=== PATIENT | female | born 1990 | race Caucasian/White ===

== ENCOUNTER 2016-09-22 12:52 | Emergency (ER) | payer MEDICAID ==
[~2016-09-22] VITALS: Ht 162.6 cm; Wt 72.6 kg
[~2016-09-22 12:52] MED LIST: AMOXICOT500 M1 PO; CIPRO 500MG TA500 MG PO; DIFLUCAN150 MG PO; HYDROCORTI30 GM/TUB1 TP; HYDROCORTISONE1% EX; MEDROL 4MG. DOSE4 MG PO; METFORMIN500 MG PO; NOMEDS *; NORCO 325 MG-51 TAB PO; PERCOCET 5/3251 EACH PO; PREDNISONE 10MG10 MG PO; PRENATAL PLUS1 TA1 PO; PYRIDIUM 200MG200 MG PO; Pepcid20 MG PO; SEPTRA DS 800 M1 TAB PO
[2016-09-22] MEDS ORDERED: BACTRIM DS 8001 TA1 PO (13:30)
--- NOTE | 2016-09-22 13:31 | [facility]gent Treatment Center Report ---
History of Present Issue Date/Time Seen by Provider 09/22/16 1317 Visit Reason Pt arrived:Walked Presenting Problem:PT HAS TWO DENYS SMALL AREAS ON HIS LEFT SIDE Location if Accident: Onset of symptoms date/time:/ or onset unknown for:MEDICAL HX UNKNOWN Have you (or family members/close friends) recently traveled outside the [place]? N If Yes, where/when: Have you had exposure to infectious disease within the past month? TB? Other? Specify: c/o two areas of redness to left hip first noticed yesterday. "like a red dot at first". Since that time, surrounding erythema, warmth, tenderness. "one came to a head and yellow drainage came out". No fever, aches, chills, nausea. Hasn't taken or tried anything for symptoms. Worried about MRSA. Source patient Exam Limitations no limitations ALLERGIES Coded Allergies: No Known Allergies (09/22/16) History Medical History General CAD? No Angina: No TN: No Hypertension? No Hyperlipidemia? No CHF? No COPD? No Asthma? No Anemia? No Hernia? No Thyroid Problems? No Hypothyroidism? No CVA? No Seizures? No Diabetes? No UTI? No Stones? No GB Disease: No Nephritic Syndrome? No Asplenia? No Hepatitis? No Sickle Cell Disease? No Arthritis? No Cataracts? No Glaucoma? No MRSA? No TB? No Cancer? No Immunization HX DT/Tetanus 1-4 YRS Flu Refused Pneumonia Never Had Surgical Hx Previous Surgery?N Social History Smoking Hx Smoker: Current Every Day Smoker Tobacco: Yes Type Cigarettes Alcohol Alcohol: No Review of Systems All Other Systems Reviewed and Negative Constitutional see HPI Gastrointestinal see HPI Musculoskeletal see HPI Skin see HPI Psychiatric/Neurological denies numbness, denies tingling Physical Exam Vital Signs Vital Signs Date Time Temp Pulse Resp B/P Pulse O2 O2 Flow FiO2 Ox Delivery Rate 09/22 1333 98.3 88 16 152/100 98 09/22 1301 98.3 88 16 152/100 98 General Appearance normal appearance, no apparent distress Respiratory Status No: respiratory distress. Cardiovascular regular rate/rhythm, no murmur Gastrointestinal non tender, soft Neurologic alert Skin warm/dry, 4.5cm x 2cm and 4.5cm x 1.5cm areas of warm, tender, soft, not fluctuate redness on left hip side by side. One w/ approx 1mm opening without current drainage. Other w/ approx 1mm center chow but skin intact. Medical Decision Making LABS/Meds/Orders Pt receiving controlled substance in ED? No Departure Departure Time of Disposition 1325 Disposition DC Home or Self Care(routine) Clinical Impression Primary Impression: Cellulitis Qualifiers: Site of cellulitis: trunk Site of cellulitis of trunk: abdominal wall Qualified Code: L03.311 - Cellulitis of abdominal wall Secondary Impressions: High blood pressure Qualifiers: Hypertension type: essential hypertension Qualified Code: I10 - Essential (primary) hypertension Condition STABLE Referrals Timmy DUNN,Chris Radford (Family) Called their office for you. Appt THIS 09/25/16 at 8am for blood pressure with [place] You still have your other appt on 10/02 for your pelvic exam Follow up immediate for new or worsening symptoms including your left side but also headache, chest pain, vomiting, vision changes that could be associated with your blood pressure Patient Instructions DI for Cellulitis -- Adult, DI for High Blood Pressure Additional Instructions Keep upcoming appts with Primary Care. Follow up immediate for new or worsening symptoms including your left side but also headache, chest pain, vomiting, vision changes that could be associated with your blood pressure Monitor redness closely. outlined with permanent marker. Be sure to seek treatment if getting more red, swollen, painful, fever, aches, chills Start antibiotic KAN Warm moist compresses 3-4 times a day Discharge Counseling Counseled pt/family regarding diagnosis, medications/RX, home care, follow up needs Prescriptions Current Visit Scripts SULFAMETHOXAZOLE W/TRIMETHOPRI (Bactrim Ds Tab) 1 TABLET PO BID #20 TAB BID x 10 days at 2202
[2016-09-22 13:33] VITALS: BP 152/100
== END 2016-09-22 13:34 | disposition home or self-care (01) ==
LOC: UTC 12:52
DX: L03.311 Cellulitis of abdominal wall (principal); I10 Essential (primary) hypertension; Z72.0 Tobacco use

== ENCOUNTER → 2016-10-02 | Outpatient (CLI) | payer MEDICAID ==
[~2016-10-02] MED LIST changes: +BACTRIM DS 8001 TA1 PO
[2016-10-02 15:19] LABS: LYMPH # 2.3 K/mm3 (0.7-4.5); LYMPH % 32.1 % (10-50.0)
[2016-10-02 15:26] LABS: HEMOGLOBIN 15.8 g/dL (12.2-16.2)
[2016-10-02 15:41] LABS: BUN 13 mg/dL (7-18)
[2016-10-02 15:43] LABS: GFR (ESTIMATED) 89 ML/MIN (59-)
== END ==
LOC: LAB 13:47
PROVIDERS: Physician Assistant
DX: N91.2 Amenorrhea, unspecified (principal)